=== PATIENT | female | born 1935 | race Hispanic/Latino ===

== ENCOUNTER 2016-05-07 09:41 | Outpatient (CLI) | payer MEDICARE ==
[2016-05-07 14:59] LABS: Hemoglobin A1c 6.6 % (4.0-6.0)
== END 2016-05-07 09:42 ==
LOC: NAVSJIPCSP 09:41
PROVIDERS: ATTEND Internal Medicine
DX: E78.5 Hyperlipidemia, unspecified (principal); E11.51 Type 2 diabetes mellitus with diabetic peripheral angiopathy without gangrene
CPT/HCPCS: 36415; 80061; 83036

== ENCOUNTER 2016-08-04 10:32 | Outpatient (CLI) | payer MEDICARE ==
[2016-08-04 13:12] LABS: #Basophils 0.1 thou/uL (0.0-0.2); #Eosinphils 0.2 thou/uL (0.0-0.7); #Lymphocytes 1.4 thou/uL (1.20-3.40); #Monocytes 0.5 thou/uL (0.11-0.59); #Neutrophils 3.1 thou/uL (1.40-6.50); %Basophils 1.3 % (0.0-1.0); %Eosinophils 3.4 % (0.0-10.0); %Lymphocytes 26.1 % (21.0-51.0); %Monocytes 10.2 % (0.0-10.0); Hemoglobin 11.7 g/dL (12.0-16.0); Mean Corpuscular HGB CONC 31.8 g/dL (32.0-36.0); Mean Corpuscular Hemoglobin 26.5 pg (27.0-31.0); Mean Corpuscular Volume 83.5 fl (81.0-99.0); Mean Platelet Volume 8.3 fL (7.4-10.4); Platelet Count 214 thou/uL (130-400); RBC Distribution Width 14.2 % (11.5-14.5); Red Blood Cell (RBC) Count 4.43 mill/uL (4.20-5.40); White Blood Cell (WBC) Count 5.3 thou/uL (4.8-10.8)
[2016-08-04 13:25] LABS: ALT (SGPT) 17 U/L (0-55); AST (SGOT) 19 U/L (5-34); Albumin 4.1 g/dL (3.4-4.8); Alkaline Phosphatase 121 U/L (40-150); Anion Gap 15 mmol/L (10-20); BUN (Urea Nitrogen) 24 mg/dL (9.8-20.1); Bilirubin, Total 0.4 mg/dL (0.2-1.2); Calc. Creatinine Clearance 0 mL/min (70-130); Calcium 9.4 mg/dL (7.8-10.44); Carbon Dioxide 25 mmol/L (23-31); Cardiac Risk 3.3 (Less than 4.5); Chloride 106 mmol/L (98-107); Cholesterol 170 mg/dL (< 200 Desired); Estimated GFR-MDRD 73; Globulin 3.1 g/dL (2.4-3.5); Glucose 114 mg/dL (83-110); HDL Cholesterol 52 mg/dL (>60 Neg Risk); LDL Cholesterol, Calculated 94 mg/dL; Potassium 4.5 mmol/L (3.5-5.1); Protein, Total 7.2 g/dL (5.8-8.1); Sodium 141 mmol/L (136-145); Triglycerides 121 mg/dL (Less than 150)
[2016-08-04 13:52] LABS: Bilirubin Negative (Negative); Blood, Urine Trace (Negative); Clarity Clear (Clear); Glucose, Urine (Dipstick) Negative (Negative); Leukocyte Negative (Negative); Nitrite Negative (Negative); Protein, Urine (Dipstick) Negative (Neg-Trace); Specific Gravity, Urine 1.025 (1.005-1.030); Urobilinogen 0.2 mg/dL (0.2-1.0); pH, Urine 6.5 (5.0-9.0)
[2016-08-04 14:07] LABS: Hemoglobin A1c 6.7 % (4.0-6.0)
[2016-08-04 14:11] LABS: Bacteria/HPF Rare-Few HPF (None Seen); Squamous Epithelial 0-3 HPF (0-3)
[2016-08-04 18:27] LABS: Creatinine, Urine 153.32 mg/dL (47-110); Microalbumin Urine 1.2 mg/dL (0.5-50.0); Microalbumin/Creat Ratio 7.8 mg/g (Less than 30)
== END 2016-08-04 10:33 ==
LOC: NAVSJIPCSP 10:32
PROVIDERS: ATTEND Internal Medicine
DX: E11.51 Type 2 diabetes mellitus with diabetic peripheral angiopathy without gangrene (principal); I25.10 Atherosclerotic heart disease of native coronary artery without angina pectoris; E78.5 Hyperlipidemia, unspecified; Z79.899 Other long term (current) drug therapy
CPT/HCPCS: 36415; 80053; 80061; 81003; 81015; 82043; 83036; 85025

== ENCOUNTER 2016-11-12 11:24 | Outpatient (CLI) | payer MEDICARE ==
[2016-11-12 12:49] LABS: Hemoglobin A1c 6.7 % (4.0-6.0)
[2016-11-12 13:30] LABS: Cardiac Risk 2.9 (Less than 4.5)
== END 2016-11-12 11:25 | disposition home or self-care (01) ==
LOC: NAVSJIPCSP 11:24
PROVIDERS: ATTEND Internal Medicine
DX: E11.59 Type 2 diabetes mellitus with other circulatory complications (principal); Z79.899 Other long term (current) drug therapy
CPT/HCPCS: 36415; 80061; 83036

== ENCOUNTER 2017-01-03 10:50 | Emergency (ER) | payer MEDICARE ==
[2017-01-03] MEDS ORDERED: Acetaminophen 325 MG TAB ONE (11:46)
--- NOTE | 2017-01-03 16:30 | RAD ---
RADIOGRAPH LEFT KNEE FOUR VIEWS: Date: 01-03-17 History: 81-year-old female with nontraumatic, sudden onset left knee pain. Comparison: None. FINDINGS: Moderate sized suprapatellar joint effusion. No acute fracture or dislocation. Moderate osteophytosi s at the patellofemoral, medial, and lateral compartments, without high grade joint space narrowing. IMPRESSION: 1. No fracture. 2. Tricompartmental moderate osteoarthrosis. 3. Joint effusion. POS: [facility]
== END 2017-01-03 13:05 | disposition home or self-care (01) ==
LOC: NAV ERS 10:50
DX: M17.12 Unilateral primary osteoarthritis, left knee (principal); E11.9 Type 2 diabetes mellitus without complications; I25.2 Old myocardial infarction; E78.5 Hyperlipidemia, unspecified; I10 Essential (primary) hypertension; Z79.82 Long term (current) use of aspirin; Z79.84 Long term (current) use of oral hypoglycemic drugs; Z79.899 Other long term (current) drug therapy

== ENCOUNTER 2018-03-04 17:43 | Emergency (ER) | payer MEDICARE ==
[2018-03-04] MEDS ORDERED: Amoxicillin/Potassium Clav 875 MG TAB ONE (18:10)
[2018-03-04] MEDS ORDERED: Acetaminophen 500 MG TAB ONE (18:30)
== END 2018-03-04 19:06 | disposition home or self-care (01) ==
LOC: NAV ERS 17:43
DX: K04.7 Periapical abscess without sinus (principal); E11.9 Type 2 diabetes mellitus without complications; E78.5 Hyperlipidemia, unspecified; I10 Essential (primary) hypertension; Z79.82 Long term (current) use of aspirin; Z79.899 Other long term (current) drug therapy; Z79.84 Long term (current) use of oral hypoglycemic drugs
CPT/HCPCS: 99283

== ENCOUNTER 2019-03-28 16:06 | Outpatient (CLI) | payer MEDICARE ==
--- NOTE | 2019-03-28 16:28 | RAD ---
XR Shoulder Lt 3 View STANDARD: 03/28/2019 4:10 PM CLINICAL INDICATION: Mass on the skin of the left shoulder. COMPARISON: None. FINDINGS: Bones: There is a 1.5 cm well-circumscribed calcified lesion within the central aspect of the proxima l left humerus likely reflecting a low-grade chondroid lesion. No acute fracture or subluxation demonstrated. Glenohumeral joint: Normal alignment. AC joint: There is moderate to severe AC joint osteoarthrosis. Visualized lung: Clear. Soft tissues: Within normal limits. IMPRESSION: No acute osseous abnormality. 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 Moderate to severe left AC joint osteoarthrosis.
== END 2019-03-28 16:07 | disposition home or self-care (01) ==
LOC: NAV RAD 16:06
PROVIDERS: ATTEND Internal Medicine
DX: R22.32 Localized swelling, mass and lump, left upper limb (principal); M19.012 Primary osteoarthritis, left shoulder; M89.9 Disorder of bone, unspecified

== ENCOUNTER 2019-05-06 11:07 | Emergency (ER) | payer MEDICARE ==
--- NOTE | 2019-05-06 12:22 | RAD ---
ONE VIEW PELVIS TWO VIEWS LEFT HIP: HISTORY: Pain. Injury. COMPARISON: None. FINDINGS: One view pelvis: Sacral ala are preserved. Symmetric sacroiliac joints. Intact bony pelvis. Intact ob turator rings. Contour of both femoral heads are maintained. Joint spaces are preserved. No fracture. Two views left hip: Contour of the femoral head is maintained. Joint space is preserved. No fracture. IMPRESSION: 1. Unremarkable 1 view pelvis. 2. Unremarkable 2 views left hip. Transcribed Date/Time: 05/06/2019 12:28 PM
--- NOTE | 2019-05-06 12:28 | RAD ---
Exam: 3 views left RIBS 1 view chest HISTORY: Pain. Injury. FINDINGS: Left rib series: No fracture, cortical irregularity or periosteal reaction. Calcification of the left rotator cuff tendon insertion site is noted. One view chest: Chronic changes lung parenchyma. No masses or consolidation. No pleural effusion or p neumothorax. Normal cardiac silhouette. Slight elongation aorta. IMPRESSION: 1. No acute cardiopulmonary process. 2. No evidence of a left rib fracture.
== END 2019-05-06 12:43 | disposition home or self-care (01) ==
LOC: NAV ERS 11:07
DX: S23.41XA Sprain of ribs, initial encounter (principal); S70.02XA Contusion of left hip, initial encounter; E11.9 Type 2 diabetes mellitus without complications; I25.2 Old myocardial infarction; E78.5 Hyperlipidemia, unspecified; Z79.82 Long term (current) use of aspirin; Z79.84 Long term (current) use of oral hypoglycemic drugs; Z79.899 Other long term (current) drug therapy; W19.XXXA Unspecified fall, initial encounter

== ENCOUNTER 2019-05-11 14:28 | Outpatient (CLI) | payer MEDICARE ==
--- NOTE | 2019-05-11 14:44 | RAD ---
EXAM: 4 views of the right knee HISTORY: Ground-level fall 2 weeks ago with knee pain COMPARISON: None FINDINGS: A small knee effusion is seen. There is no evidence of acute fracture or dislocation. Moder ate to severe tricompartmental degenerative changes are seen. No soft tissue swelling is present. IMPRESSION: Right knee osteoarthritis without acute osseous abnormality.
--- NOTE | 2019-05-11 14:48 | RAD ---
EXAM: 4 views of the left knee HISTORY: Ground-level fall with knee pain COMPARISON: 01/03/2017 FINDINGS: No knee effusion is seen. There is no evidence of acute fracture or dislocation. Moderate t ricompartmental degenerative changes are seen. No soft tissue swelling is present. IMPRESSION: Moderate left knee osteoarthritis without acute osseous abnormality.
== END 2019-05-11 14:29 | disposition home or self-care (01) ==
LOC: NAV RAD 14:28
PROVIDERS: ATTEND Nurse Practitioner Adult Health
DX: M25.561 Pain in right knee (principal); M25.562 Pain in left knee; M17.0 Bilateral primary osteoarthritis of knee; W19.XXXA Unspecified fall, initial encounter

== ENCOUNTER 2019-10-14 13:56 | Emergency (ER) | payer MEDICARE, OTHER ==
[2019-10-16 13:41] LABS: SARS-CoV-2 MS2 Positive; SARS-CoV-2 N Gene Negative; SARS-CoV-2 S Gene Negative; SARS-CoV-2 orf1ab Negative
== END 2019-10-14 15:35 | disposition home or self-care (01) ==
LOC: NAV ERS 13:56
DX: Z20.828 Contact with and (suspected) exposure to other viral communicable diseases (principal); I25.2 Old myocardial infarction; E78.5 Hyperlipidemia, unspecified; I10 Essential (primary) hypertension; E11.9 Type 2 diabetes mellitus without complications; Z79.82 Long term (current) use of aspirin; Z79.899 Other long term (current) drug therapy
CPT/HCPCS: 99283; U0003; 87635

== ENCOUNTER 2020-01-23 13:28 | Emergency (ER) | payer MEDICARE ==
[2020-01-24 13:14] LABS: SARS-CoV-2 MS2 Positive; SARS-CoV-2 N Gene Negative; SARS-CoV-2 S Gene Negative; SARS-CoV-2 by NAA Not Detected (NotDetected); SARS-CoV-2 orf1ab Negative
== END 2020-01-23 14:05 | disposition home or self-care (01) ==
LOC: NAV ERS 13:28
DX: Z20.828 Contact with and (suspected) exposure to other viral communicable diseases (principal); E11.9 Type 2 diabetes mellitus without complications; I25.2 Old myocardial infarction; E78.5 Hyperlipidemia, unspecified; I10 Essential (primary) hypertension; Z79.899 Other long term (current) drug therapy
CPT/HCPCS: 99283; U0003; 87635

== ENCOUNTER 2020-02-06 14:15 | Emergency (ER) | payer MEDICARE | END 2020-02-06 14:55 | disposition home or self-care (01) | LOC: NAV ERS 14:15 | DX: Z20.828 Contact with and (suspected) exposure to other viral communicable diseases (principal); E11.9 Type 2 diabetes mellitus without complications; I25.2 Old myocardial infarction; E78.5 Hyperlipidemia, unspecified; I10 Essential (primary) hypertension; Z79.82 Long term (current) use of aspirin; Z79.899 Other long term (current) drug therapy | CPT/HCPCS: 99283 ==

== ENCOUNTER 2020-03-05 12:00 | Emergency (ER) | payer MEDICARE ==
[2020-03-06 10:55] LABS: SARS-CoV-2 MS2 Positive; SARS-CoV-2 N Gene Negative; SARS-CoV-2 S Gene Negative; SARS-CoV-2 by NAA Not Detected (NotDetected); SARS-CoV-2 orf1ab Negative
== END 2020-03-05 12:32 | disposition home or self-care (01) ==
LOC: NAV ERS 12:00
DX: Z20.828 Contact with and (suspected) exposure to other viral communicable diseases (principal); E11.9 Type 2 diabetes mellitus without complications; I25.2 Old myocardial infarction; E78.5 Hyperlipidemia, unspecified; I10 Essential (primary) hypertension; Z79.899 Other long term (current) drug therapy; Z79.82 Long term (current) use of aspirin
CPT/HCPCS: 99283; U0003; 87635

== ENCOUNTER 2020-03-18 09:06 | Emergency (ER) | payer MEDICARE ==
[2020-03-18 15:47] LABS: SARS-CoV-2 MS2 Positive; SARS-CoV-2 N Gene Negative; SARS-CoV-2 S Gene Negative; SARS-CoV-2 by NAA Not Detected (NotDetected); SARS-CoV-2 orf1ab Negative
== END 2020-03-18 09:50 | disposition home or self-care (01) ==
LOC: NAV ERS 09:06
DX: Z20.828 Contact with and (suspected) exposure to other viral communicable diseases (principal); E11.9 Type 2 diabetes mellitus without complications; I25.2 Old myocardial infarction; E78.5 Hyperlipidemia, unspecified; I10 Essential (primary) hypertension; Z79.82 Long term (current) use of aspirin; Z79.899 Other long term (current) drug therapy
CPT/HCPCS: 99283; U0003; 87635

== ENCOUNTER 2020-04-01 09:09 | Emergency (ER) | payer MEDICARE ==
[2020-04-01 22:39] LABS: SARS-CoV-2 MS2 Positive; SARS-CoV-2 N Gene Negative; SARS-CoV-2 S Gene Negative; SARS-CoV-2 by NAA Not Detected (NotDetected); SARS-CoV-2 orf1ab Negative
== END 2020-04-01 10:15 | disposition home or self-care (01) ==
LOC: NAV ERS 09:09
DX: Z20.828 Contact with and (suspected) exposure to other viral communicable diseases (principal); E11.9 Type 2 diabetes mellitus without complications; I25.2 Old myocardial infarction; E78.5 Hyperlipidemia, unspecified; I10 Essential (primary) hypertension; Z79.82 Long term (current) use of aspirin; Z79.899 Other long term (current) drug therapy
CPT/HCPCS: 87635; 99283; U0003

== ENCOUNTER 2021-03-10 16:21 | Emergency (ER) | payer MEDICAID, MEDICARE ==
[2021-03-10 16:41] LABS: Hemoglobin 12.4 g/dL (12.0-16.0); Mean Corpuscular HGB CONC 34.1 g/dL (32.0-36.0); Mean Corpuscular Hemoglobin 36.3 pg (27.0-31.0); Mean Platelet Volume 8.7 fL (7.4-10.4); Platelet Count 223 thou/uL (130-400); RBC Distribution Width 12.1 % (11.5-14.5); Red Blood Cell (RBC) Count 3.43 mill/uL (4.20-5.40); White Blood Cell (WBC) Count 6.5 thou/uL (4.8-10.8)
[2021-03-10 16:52] LABS: #Basophils 0.1 thou/uL (0.0-0.2); #Eosinphils 0.3 thou/uL (0.0-0.7); #Lymphocytes 1.4 thou/uL (1.20-3.40); #Monocytes 0.6 thou/uL (0.11-0.59); #Neutrophils 4.1 thou/uL (1.40-6.50); %Basophils 1.2 % (0.0-1.0); %Eosinophils 4.7 % (0.0-10.0); %Monocytes 9.4 % (0.0-10.0); %Neutrophils 62.7 % (42.0-75.0); MDiff Complete? YES; Macrocytosis SLIGHT = 6-15 cells (100X) (0-5/hpf); Platelet Morphology Comment Appears Adequate
[2021-03-10 16:58] LABS: ALT (SGPT) 15 U/L (8-55); AST (SGOT) 21 U/L (5-34); Albumin 3.9 g/dL (3.4-4.8); Alkaline Phosphatase 112 U/L (40-110); Anion Gap 12 mmol/L (10-20); BUN (Urea Nitrogen) 16 mg/dL (9.8-20.1); Bilirubin, Total 0.5 mg/dL (0.2-1.2); Calc. Creatinine Clearance 0 mL/min (70-130); Calcium 9.3 mg/dL (7.8-10.44); Carbon Dioxide 25 mmol/L (23-31); Chloride 103 mmol/L (98-107); Globulin 3.4 g/dL (2.4-3.5); Glucose 197 mg/dL (83-110); Protein, Total 7.3 g/dL (5.8-8.1); Sodium 136 mmol/L (136-145)
[2021-03-10] MEDS ORDERED: Apixaban 5 MG TAB PO SCH (19:00)
== END 2021-03-10 19:27 | disposition home or self-care (01) ==
LOC: NAV ERS 16:21
DX: I48.91 Unspecified atrial fibrillation (principal); Z79.899 Other long term (current) drug therapy; Z79.82 Long term (current) use of aspirin; E11.9 Type 2 diabetes mellitus without complications; I25.10 Atherosclerotic heart disease of native coronary artery without angina pectoris; E78.5 Hyperlipidemia, unspecified; I10 Essential (primary) hypertension
CPT/HCPCS: 71045; 80053; 84484; 85025; 93005; 94760

== ENCOUNTER 2021-05-09 17:02 | Emergency (ER) | payer MEDICARE, MEDICAID | END 2021-05-09 17:45 | disposition home or self-care (01) | LOC: NAV ERS 17:02 | DX: K12.0 Recurrent oral aphthae (principal); E11.9 Type 2 diabetes mellitus without complications; I25.2 Old myocardial infarction; E78.5 Hyperlipidemia, unspecified; I10 Essential (primary) hypertension; Z79.82 Long term (current) use of aspirin; Z79.01 Long term (current) use of anticoagulants; Z79.899 Other long term (current) drug therapy | CPT/HCPCS: 99282 ==

== ENCOUNTER 2021-05-31 13:54 | Emergency (ER) | payer MEDICARE, MEDICAID ==
[~2021-05-31 13:54] MED LIST: Iopamidol 370 76% 100 ML VIAL ONE
[2021-05-31] MEDS ORDERED: Ondansetron PF 4 MG/2 ML Vial ONE (14:25)
[2021-05-31] MEDS ORDERED: Sodium Chloride 0.9% 1,000 ML ONE (14:25)
[2021-05-31 14:39] LABS: #Lymphocytes 0.6 thou/uL (1.20-3.40); #Monocytes 0.6 thou/uL (0.11-0.59); #Neutrophils 14.9 thou/uL (1.40-6.50); %Basophils 0.2 % (0.0-1.0); %Lymphocytes 3.7 % (21.0-51.0); %Monocytes 3.6 % (0.0-10.0); %Neutrophils 92.4 % (42.0-75.0); Hemoglobin 14.9 g/dL (12.0-16.0); Mean Corpuscular HGB CONC 33.4 g/dL (32.0-36.0); Mean Corpuscular Hemoglobin 35.1 pg (27.0-31.0); Mean Platelet Volume 8.6 fL (7.4-10.4); Platelet Count 281 thou/uL (130-400); RBC Distribution Width 12.6 % (11.5-14.5); Red Blood Cell (RBC) Count 4.24 mill/uL (4.20-5.40); White Blood Cell (WBC) Count 16.1 thou/uL (4.8-10.8)
[2021-05-31 14:53] LABS: Anisocytosis SLIGHT = 6-15 cells (100X) (0-5/hpf); Platelet Morphology Comment Appears Adequate
[2021-05-31 14:56] LABS: ALT (SGPT) 25 U/L (8-55); AST (SGOT) 24 U/L (5-34); Albumin 4.4 g/dL (3.4-4.8); Alkaline Phosphatase 142 U/L (40-110); Anion Gap 18 mmol/L (10-20); BUN (Urea Nitrogen) 17 mg/dL (9.8-20.1); Bilirubin, Total 0.9 mg/dL (0.2-1.2); Calc. Creatinine Clearance 0 mL/min (70-130); Calcium 9.9 mg/dL (7.8-10.44); Carbon Dioxide 22 mmol/L (23-31); Chloride 102 mmol/L (98-107); Globulin 3.7 g/dL (2.4-3.5); Glucose 259 mg/dL (83-110); Lipase 4 U/L (8-78); Potassium 4.1 mmol/L (3.5-5.1); Protein, Total 8.1 g/dL (5.8-8.1); Sodium 138 mmol/L (136-145)
[2021-05-31] MEDS ORDERED: Fentanyl 100 MCG/2 ML VIAL ONE ×2 (15:59→19:01)
[2021-05-31 17:12] LABS: Lactic Acid 1.6 mmol/L (0.5-2.2)
[2021-05-31] MEDS ORDERED: Sodium Chloride 0.9% 100 ML ONE (18:21)
[2021-05-31] MEDS ORDERED: Piperacillin/Tazobactam 4.5 GM VIAL ONE (18:21)
[2021-05-31 18:22] LABS: Bilirubin Negative (Negative); Blood, Urine Small (Negative); Clarity Clear (Clear); Glucose, Urine (Dipstick) 250 mg/dL (Negative); Ketone, Urine Trace mg/dL (Negative); Leukocyte Negative (Negative); Nitrite Negative (Negative); Protein, Urine (Dipstick) Negative (Neg-Trace); Specific Gravity, Urine 1.015 (1.005-1.030)
[2021-05-31 18:26] LABS: RBC/HPF 0-3 HPF (0-3); Squamous Epithelial 0-3 HPF (0-3); WBC/HPF None Seen HPF (0-3)
[2021-05-31] MEDS ORDERED: Lidocaine Viscous Sol 2% 15 ml UD Cup ONE (18:47)
[2021-05-31 19:41] LABS: SARS-CoV-2 NAA Rapid Test Not Detected (NotDetected)
== END 2021-05-31 19:46 | disposition short-term general hospital (02) ==
LOC: NAV ERS 13:54
DX: K56.609 Unspecified intestinal obstruction, unspecified as to partial versus complete obstruction (principal); D72.829 Elevated white blood cell count, unspecified; R00.0 Tachycardia, unspecified; I10 Essential (primary) hypertension; E11.9 Type 2 diabetes mellitus without complications; I25.2 Old myocardial infarction; E78.5 Hyperlipidemia, unspecified; G20 Parkinson's disease; Z20.822 Contact with and (suspected) exposure to COVID-19; Z79.82 Long term (current) use of aspirin; Z79.899 Other long term (current) drug therapy
CPT/HCPCS: 0240U; 71045; 74177; 80053; 83605; 83690; 84484; 85025; 87040; 93005; 36415; 81003; 81015; 96365; 96375; 96376; J2405; J2543; J3010; J3490; J7050; Q9967

== ENCOUNTER 2022-01-19 11:51 | Emergency (ER) | payer MEDICARE, MEDICAID ==
[2022-01-19] MEDS ORDERED: Aspirin Chewable 81 MG TAB ONE (12:06)
[2022-01-19 12:11] LABS: #Basophils 0.1 thou/uL (0.0-0.2); #Eosinphils 0.1 thou/uL (0.0-0.7); #Lymphocytes 1.3 thou/uL (1.20-3.40); #Monocytes 0.6 thou/uL (0.11-0.59); #Neutrophils 4.2 thou/uL (1.40-6.50); %Eosinophils 2.1 % (0.0-10.0); %Lymphocytes 20.7 % (21.0-51.0); %Monocytes 9.1 % (0.0-10.0); %Neutrophils 67.1 % (42.0-75.0); Hemoglobin 13.1 g/dL (12.0-16.0); Mean Corpuscular HGB CONC 30.7 g/dL (32.0-36.0); Mean Corpuscular Hemoglobin 27.6 pg (27.0-31.0); Mean Corpuscular Volume 89.8 fL (78.0-98.0); Mean Platelet Volume 8.6 fL (7.4-10.4); Platelet Count 238 thou/uL (130-400); RBC Distribution Width 12.7 % (11.5-14.5); Red Blood Cell (RBC) Count 4.76 mill/uL (4.20-5.40); White Blood Cell (WBC) Count 6.2 thou/uL (4.8-10.8)
[2022-01-19] MEDS ORDERED: Nitroglycerin 0.4 MG TAB (25 Tab Bottle) ONE (12:12)
[2022-01-19 12:38] LABS: ALT (SGPT) 17 U/L (8-55); AST (SGOT) 17 U/L (5-34); Albumin 4.3 g/dL (3.4-4.8); Alkaline Phosphatase 140 U/L (40-110); Anion Gap 17 mmol/L (10-20); BUN (Urea Nitrogen) 23 mg/dL (9.8-20.1); Bilirubin, Total 0.6 mg/dL (0.2-1.2); Calc. Creatinine Clearance 0 mL/min (70-130); Calcium 9.6 mg/dL (7.8-10.44); Carbon Dioxide 24 mmol/L (23-31); Chloride 105 mmol/L (98-107); Estimated GFR 55; Globulin 3.1 g/dL (2.4-3.5); Glucose 184 mg/dL (83-110); Lipase 13 U/L (8-78); Potassium 4.5 mmol/L (3.5-5.1); Protein, Total 7.4 g/dL (5.8-8.1); Sodium 141 mmol/L (136-145)
[2022-01-19] MEDS ORDERED: Nitroglycerin 2% Ointment 1 INCH/1 GM Packet ONE (12:40)
[2022-01-19] MEDS ORDERED: Sodium Chloride 0.9% 1,000 ML ONE (12:40)
[2022-01-19] MEDS ORDERED: Pantoprazole 40 MG VIAL ONE (13:10)
[2022-01-19] MEDS ORDERED: Sterile Water 10 ML ONE (13:11)
[2022-01-19] MEDS ORDERED: Mag-Al Plus 1200 MG/1200 MG/120 MG/30 ML UDCUP ONE (13:58)
[2022-01-19] MEDS ORDERED: Milk Of Magnesia 30 ML UDCUP ONE (13:58)
== END 2022-01-19 16:39 | disposition short-term general hospital (02) ==
LOC: NAV ERS 11:51
DX: R07.2 Precordial pain (principal); R10.13 Epigastric pain; R79.89 Other specified abnormal findings of blood chemistry; E11.9 Type 2 diabetes mellitus without complications; I25.2 Old myocardial infarction; E78.5 Hyperlipidemia, unspecified; I10 Essential (primary) hypertension; Z79.899 Other long term (current) drug therapy; Z79.82 Long term (current) use of aspirin
CPT/HCPCS: 71045; 71275; 74174; 80053; 83690; 83880; 84484; 85025; 85379; 93005; 96374; C9113; J7050; Q9967

== ENCOUNTER 2022-08-31 09:36 | Emergency (ER) | payer MEDICARE, MEDICAID ==
[2022-08-31] MEDS ORDERED: Acetaminophen 325 MG TAB ONE (10:01)
[2022-08-31] MEDS ORDERED: Lisinopril 10 MG TAB ONE (10:21)
[2022-08-31] MEDS ORDERED: Propranolol HCl 20 MG TAB PO SCH (10:30)
[2022-08-31 10:39] LABS: #Basophils 0.1 thou/uL (0.0-0.2); #Eosinphils 0.2 thou/uL (0.0-0.7); #Lymphocytes 0.8 thou/uL (1.20-3.40); #Monocytes 0.6 thou/uL (0.11-0.59); #Neutrophils 4.8 thou/uL (1.40-6.50); %Basophils 1.2 % (0.0-1.0); %Eosinophils 2.8 % (0.0-10.0); %Monocytes 9.6 % (0.0-10.0); %Neutrophils 74.5 % (42.0-75.0); Hemoglobin 12.6 g/dL (12.0-16.0); Mean Corpuscular HGB CONC 32.3 g/dL (32.0-36.0); Mean Corpuscular Hemoglobin 28.6 pg (27.0-31.0); Mean Corpuscular Volume 88.5 fl (78.0-98.0); Mean Platelet Volume 9.2 fL (7.4-10.4); Platelet Count 189 10x3/uL (130-400); Red Blood Cell (RBC) Count 4.42 mill/uL (4.20-5.40); White Blood Cell (WBC) Count 6.5 10x3/uL (4.8-10.8)
[2022-08-31 10:48] LABS: PTT 31.1 sec (22.9-36.1); Prothrombin Time 13.9 sec (12.0-14.7)
[2022-08-31 11:02] LABS: Anion Gap 15 mmol/L (10-20); BUN (Urea Nitrogen) 16 mg/dL (9.8-20.1); CK (CPK) 72 U/L (29-168); Calc. Creatinine Clearance 0 mL/min (70-130); Calcium 9.3 mg/dL (7.8-10.44); Carbon Dioxide 23 mmol/L (23-31); Chloride 105 mmol/L (98-107); Estimated GFR 68; Glucose 186 mg/dL (83-110); Potassium 4.2 mmol/L (3.5-5.1); Sodium 139 mmol/L (136-145)
[2022-08-31] MEDS ORDERED: Boostrix 0.5 ML (Tdap) VIAL (>/=7 yrs of age) ONE (11:13)
[2022-08-31] MEDS ORDERED: traMADol HCl 50 MG TAB ONE (11:15)
[2022-08-31] MEDS ORDERED: Ondansetron ODT 4 MG TAB ONE (11:26)
== END 2022-08-31 11:54 | disposition home or self-care (01) ==
LOC: NAV ERS 09:36
DX: S01.03XA Puncture wound without foreign body of scalp, initial encounter (principal); R60.0 Localized edema; I10 Essential (primary) hypertension; E11.9 Type 2 diabetes mellitus without complications; I25.2 Old myocardial infarction; E78.5 Hyperlipidemia, unspecified; G20 Parkinson's disease; Z23 Encounter for immunization; Z79.899 Other long term (current) drug therapy; Z79.82 Long term (current) use of aspirin; Z79.84 Long term (current) use of oral hypoglycemic drugs; W18.30XA Fall on same level, unspecified, initial encounter
CPT/HCPCS: 36415; 70450; 72125; 80048; 82550; 83880; 84484; 85025; 85610; 85730; 90471; 90715; Q0162

== ENCOUNTER 2022-11-10 17:00 | Emergency (ER) | payer MEDICARE, MEDICAID ==
[2022-11-10 17:54] LABS: Bilirubin Negative (Negative); Blood, Urine Large (Negative); Glucose, Urine (Dipstick) Negative (Negative); Ketone, Urine Trace mg/dL (Negative); Leukocyte Moderate (Negative); Nitrite Negative (Negative); Protein, Urine (Dipstick) 100 mg/dL (Neg-Trace); Specific Gravity, Urine 1.025 (1.005-1.030)
[2022-11-10 17:55] LABS: Clarity Hazy (Clear)
[2022-11-10 17:56] LABS: Bacteria/HPF 3+ HPF (None Seen); CAUTI Indications for Culture Dysuria,urgency,freq; Squamous Epithelial 0-3 HPF (0-3); WBC/HPF Greater Than 50 HPF (0-3)
[2022-11-10 17:57] LABS: Urine Culture Reflex Yes Yes
[2022-11-10] MEDS ORDERED: Cipro 250 MG TAB ONE (18:07)
== END 2022-11-10 18:14 | disposition home or self-care (01) ==
LOC: NAV ERS 17:00
DX: N30.00 Acute cystitis without hematuria (principal); R05.9 Cough, unspecified; E11.9 Type 2 diabetes mellitus without complications; E78.5 Hyperlipidemia, unspecified; I10 Essential (primary) hypertension; Z79.82 Long term (current) use of aspirin; Z79.84 Long term (current) use of oral hypoglycemic drugs
CPT/HCPCS: 71046; 81001; 87077; 87086

== ENCOUNTER 2023-06-27 08:26 | Emergency (ER) | payer MEDICARE, MEDICAID ==
[2023-06-27] MEDS ORDERED: Ondansetron PF 4 MG/2 ML Vial ONE (09:06)
[2023-06-27 09:29] LABS: Anion Gap 12 mmol/L (10-20); BUN (Urea Nitrogen) 20 mg/dL (9.8-20.1); Calc. Creatinine Clearance 0 mL/min (70-130); Calcium 9.2 mg/dL (7.8-10.44); Carbon Dioxide 26 mmol/L (23-31); Chloride 104 mmol/L (98-107); Estimated GFR 73; Glucose 145 mg/dL (83-110); Magnesium 1.9 mg/dL (1.6-2.6); Potassium 4.4 mmol/L (3.5-5.1); Sodium 138 mmol/L (136-145)
[2023-06-27 09:32] LABS: Troponin I Less than 0.010 ng/mL (< 0.028)
[2023-06-27 09:37] LABS: #Basophils 0.1 thou/uL (0.0-0.2); #Eosinphils 0.2 thou/uL (0.0-0.7); #Lymphocytes 1.2 thou/uL (1.20-3.40); #Monocytes 0.5 thou/uL (0.11-0.59); #Neutrophils 3.4 thou/uL (1.40-6.50); %Basophils 1.7 % (0.0-1.0); %Eosinophils 3.5 % (0.0-10.0); %Lymphocytes 21.7 % (21.0-51.0); %Monocytes 9.5 % (0.0-10.0); %Neutrophils 63.7 % (42.0-75.0); Hematocrit 37.1 % (36.0-47.0); Hemoglobin 11.9 g/dL (12.0-16.0); Mean Corpuscular HGB CONC 32.1 g/dL (32.0-36.0); Mean Corpuscular Hemoglobin 27.5 pg (27.0-31.0); Mean Corpuscular Volume 85.6 fl (78.0-98.0); Mean Platelet Volume 8.7 fL (7.4-10.4); Platelet Count 207 10x3/uL (130-400); RBC Distribution Width 11.6 % (11.5-14.5); Red Blood Cell (RBC) Count 4.33 mill/uL (4.20-5.40); White Blood Cell (WBC) Count 5.3 10x3/uL (4.8-10.8)
== END 2023-06-27 10:34 | disposition home or self-care (01) ==
LOC: NAV ERS 08:26
DX: R51.9 Headache, unspecified (principal); I25.10 Atherosclerotic heart disease of native coronary artery without angina pectoris; I10 Essential (primary) hypertension; E11.9 Type 2 diabetes mellitus without complications; E78.5 Hyperlipidemia, unspecified; Z79.84 Long term (current) use of oral hypoglycemic drugs; Z79.82 Long term (current) use of aspirin; Z79.899 Other long term (current) drug therapy
CPT/HCPCS: 70450; 80048; 83735; 84484; 85025; 93005; 96374; J2405